=== PATIENT | male | born 1985 | race Caucasian/White ===

== ENCOUNTER 2021-12-22 12:19 | Outpatient (CLI) | payer BC, SELFPAY ==
[2021-12-22 13:44] LABS: Vitamin B12 607 pg/mL (211-911)
[2021-12-22 13:50] LABS: Hematocrit 44.6 % (40-54); Hemoglobin 14.5 g/dL (13.0-16.5); Mean Corp Hgb Conc 32.5 g/dL (32-36); Mean Corpuscular Hgb 28.5 pg (27.0-32.0); Mean Corpuscular Volume 87.6 fL (80-94); Mean Platelet Vol. 10.3 fl (6.2-12.0); Platelet Count 236 K/mm3 (150-450); RBC Distribution Width CV 13.3 % (11.6-14.6); RBC Distribution Width SD 42.7 fl (35.1-43.9); Red Blood Count 5.09 M/mm3 (4.6-6.2); White Blood Count 5.2 K/mm3 (4.4-11.0)
[2021-12-22 14:19] LABS: AST(SGOT) 28 U/L (15-37); Alanine Aminotransfer ALT/SGPT 83 U/L (16-61); Albumin, Serum 3.5 g/dL (3.2-5.0); Alkaline Phosphatase 85 U/L (45-117); Anion Gap 2 (5-15); BUN 7 mg/dL (7-18); BUN/Creat Ratio 7.6 RATIO (10-20); Calcium,Total 8.5 mg/dL (8.5-10.1); Chloride 109 mmol/L (98-107); Creatinine, Serum 0.92 mg/dL (0.70-1.30); EST Glomerular Filtration Rate 100 mL/min (>60); Est Glom Filt Rate - Afr Amer 120 mL/min (>60); Globulin 3.6 g/dL (2.2-4.2); Glucose 84 mg/dL (74-106); Potassium 4.4 mmol/L (3.5-5.1); Protein, Total 7.1 g/dL (6.4-8.2); Sodium Level 140 mmol/L (136-145); T4 Free Direct 0.97 ng/dL (0.76-1.46); T4 Total, Thyroxin 9.1 ug/dL (4.5-12.1); Thyroid Stim Hormone (TSH) 3.55 uIU/mL (0.358-3.74)
== END 2021-12-22 23:59 | disposition short-term general hospital (02) ==
LOC: LABSPEC 12:27
PROVIDERS: PCP Family Medicine; Visit Provider Nurse Practitioner Family
DX: E03.9 Hypothyroidism, unspecified (principal); F32.A Depression, unspecified; R53.83 Other fatigue
CPT/HCPCS: 80053; 82306; 82607; 82746; 84436; 84439; 84443; 85027

== ENCOUNTER → 2023-11-24 17:22 | Outpatient (REF) | payer BC, SELFPAY ==
[2023-11-24 17:24] LABS: Bacteria 0 SEEN /hpf (None Seen); Mucous, Urine 0 SEEN /hpf (<or=2+); Red Blood Cells-Urine 0 SEEN /hpf (0-5); Squamous Epithelial Cells - UA 0 SEEN /hpf (0-5); White Blood Cells 0 SEEN /hpf (0-5)
--- OUTSIDE RECORDS SUMMARY | 2023-11-24 17:25 | XMS RPT_ITS | CCD ---
Author Name Unknown Address [address] [place] [address] Organization [facility] Care Team Providers Care Communication Consultant Name Role Phone Unavailable Primary Care Provider Unavailabl e Pending Provider Unavailable Unavailable Unavailable Unavailable Columba Law MD Primary Care Provider COLUMBA LAW Primary Care Unavailable COLUMBA LAW Attending Unavailable COLUMBA LAW Primary Care Unavailable COLUMBA LAW Attending Unavailable COLUMBA LAW Primary Care Unavailable COLUMBA LAW Attending Unavailable COLUMBA LAW Primary Care Unavailable COLUMBA LAW Attending Unavailable Medications Current Medications Medication Drug Class(es) Dates Sig (Normalized) Sig (Original) cholecalciferol 0.025 mg oral tablet (4 sources) Vitamin D take 1 tablet by mouth once daily cholecalciferol (Vitamin D-3) 25 MCG (1000 UT) tablet Take 1,000 Units by mouth daily. 0 Active dexamethasone phosphate 1 mg/ml ophthalmic solution (4 sources) Corticosteroid Start: 2 dexAMETHasone (Decadron) 0.1 % ophthalmic solution PUT 3 DROPS IN R EAR TWICE DAILY FOR 5 DAYS 0 05/27/2022 Active escitalopram 20 mg oral tablet (4 sources) Serotonin Reuptake Inhibitor Start: 2 take 1 tablet by mouth once daily escitalopram (Lexapro) 20 MG tablet Take 20 mg by mouth daily. 0 11/16/2022 Active levothyroxine sodium 0.075 mg oral tablet (4 sources) l-Thyroxine Start: 3 levothyroxine (Synthroid, Levoxyl) 75 MCG tablet PLEASE SEE ATTACHED FOR DETAILED DIRECTIONS 0 01/20/2023 Active melatonin 3 mg oral tablet (4 sources) take 1 tablet by mouth once daily melatonin 3 MG tablet Take 3 mg by mouth daily. 0 Active Multiple Vitamin (MULTIVITAMIN ADULT PO) (4 sources) Multiple Vitamin (MULTIVITAMIN ADULT PO) Take by mouth. 0 Active sildenafil 50 mg oral tablet (5 sources) Phosphodiesterase 5 Inhibitor Start: 2 End: 3 take 1 tablet by mouth every twenty-four hours as needed sildenafil (Viagra) 50 MG tablet Take 1 tablet (50 mg) by mouth Daily as needed for erectile dysfunction. 10 tablet 1 08/12/2023 Active traZODone hydrochloride 100 mg oral tablet (5 sources) Serotonin Reuptake Inhibitor Start: 3 take 1 tablet by mouth once daily as needed traZODone (Desyrel) 100 MG tablet Take 100 mg by mouth Nightly as needed. 0 07/05/2023 Active Completed/Discontinued Medications Medication Drug Class(es) Dates Sig (Normalized) Sig (Original) phentermine hydrochloride 37.5 mg oral tablet (6 sources) Sympathomimetic Amine Anorectic Start: 08-12-2023 End: 11-06-2023 take 1 tablet by mouth once daily before breakfast phentermine (Adipex-P) 37.5 MG tablet Indications: Obesity, Class III, BMI 40-49.9 (morbid obesity) (HCC) Take 1 tablet (37.5 mg) by mouth every morning (before breakfast). 30 tablet 0 09/09/2023 10/07/2023 Discontinued (Reorder) Problems Active Problems Problem Classification Problem Date Documented Date Episodic/Chronic Immunizations and screening for infectious disease (3 sources) Patient encounter status; Translations: [Other specified vaccination] 08-12-2023 Episodic Miscellaneous mental health disorders (7 sources) Primary insomnia; Translations: [Primary insomnia] Onset: 07-21-2021 08-12-2023 Chronic Mood disorders (7 sources) Recurrent major depression in full remission; Translations: [Major depressive disorder, recurrent, in full remission] Onset: 07-21-2021 08-12-2023 Chronic Open wounds of extremities (1 source) Laceration of left ring finger; Translations: [Open wound of finger(s), without mention of complication] Episodic Other male genital disorders (5 sources) Vasculopathic erectile dysfunction; Translations: [Male erectile dysfunction, unspecified] Onset: 01-26-2022 08-12-2023 Chronic Other male genital disorders (2 sources) Male erectile dysfunction, unspecified; Translations: [Male erectile dysfunction, unspecified] Onset: 09-05-2022 Chronic Other non-traumatic joint disorders (1 source) Pain in wrist; Translations: [Pain in joint, forearm] Episodic Other nutritional; endocrine; and metabolic disorders (7 sources) Body mass index 40+ - severely obese; Translations: [Morbid (severe) obesity due to excess calories] Onset: 08-03-2022 08-12-2023 Chronic Other nutritional; endocrine; and metabolic disorders (2 sources) Morbid (severe) obesity due to excess calories; Translations: [Morbid (severe) obesity due to excess calories (HCC)] Onset: 09-05-2022 Chronic Other screening for suspected conditions (not mental disorders or infectious disease) (4 sources) Encounter for screening for diabetes mellitus; Translations: [Encounter for screening for lipoid disorders] Onset: 08-12-2023 Episodic Thyroid disorders (7 sources) Acquired hypothyroidism; Translations: [Hypothyroidism, unspecified] Onset: 07-21-2021 08-12-2023 Chronic Unclassified (2 sources) Weight Management; Translations: [Weight Management] Onset: 10-07-2023 Unclassified (2 sources) Other Onset: 10-07-2023 Past or Other Problems Problem Classification Problem Date Documented Da te Episodic/Chronic Allergic reactions (4 sources) Irritant contact dermatitis; Translations: [Irritant contact dermatitis due to other agents] Onset: 08-03-2022 09-04-2022 Episodic Mood disorders (4 sources) Mood disorders Onset: 08-12-2023 08-12-2023 Residual codes; unclassified (4 sources) Dependent edema; Translations: [Edema, unspecified] Onset: 02-10-2023 02-10-2023 Episodic Residual codes; unclassified (2 sources) Edema, unspecified; Translations: [Edema, unspecified] Onset: 02-10-2023 Episodic Results Test Name Value Interpretation Reference Range Facil ity Vital Signs Date Time Vital Sign Value Performing Clinician Faci lity 10-07-2023 11:40-0500 Body height 182.9 cm Columba Law MD Work Phone: [facility] 10-07-2023 11:40-0500 Body mass index (BMI) [Ratio] 41.77 kg/m2 Columba Law MD Work Phone: [facility] 10-07-2023 11:40-0500 Body weight 139.71 kg Columba Law MD Work Phone: [facility] 09-09-2023 10:50-0400 Body height 182.9 cm Columba Law MD Work Phone: [facility] 09-09-2023 10:50-0400 Body mass index (BMI) [Ratio] 43.78 kg/m2 Columba Law MD Work Phone: [facility] 09-09-2023 10:50-0400 Body weight 146.42 kg Columba Law MD Work Phone: [facility] 09-09-2023 10:50-0400 Diastolic blood pressure 85 mm[Hg] Columba Law MD Work Phone: [facility] [employer] 09-09-2023 10:50-0400 Heart rate 91 /min Columba Law MD Work Phone: [facility] 09-09-2023 10:50-0400 SaO2% (BldA) [Mass fraction] 94 % Columba Law MD Work Phone: [facility] [facility] 09-09-2023 10:50-0400 Systolic blood pressure 129 mm[Hg] Columba Law MD Work Phone: [facility] [facility] 08-12-2023 09:04-0400 Body height 182.9 cm Columba Law MD Work Phone: [facility] 08-12-2023 09:04-0400 Body mass index (BMI) [Ratio] 46.38 kg/m2 Columba Law MD Work Phone: [facility] [facility] 08-12-2023 09:04-0400 Body weight 155.13 kg Columba Law MD Work Phone: [facility] [facility] 08-12-2023 09:04-0400 Diastolic blood pressure 82 mm[Hg] Columba Law MD Work Phone: [facility] [employer] 08-12-2023 09:04-0400 Heart rate 87 /min Columba Law MD Work Phone: [facility] [employer] 08-12-2023 09:04-0400 SaO2% (BldA) [Mass fraction] 92 % Columba Law MD Work Phone: [facility] [employer] 08-12-2023 09:04-0400 Systolic blood pressure 116 mm[Hg] Columba Law MD Work Phone: [facility] [employer] 01-18-2022 13:54-0500 Body height 182.88 cm Dustin Fernandez Isaiah DO Work Phone: [facility] Work Phone: 01-18-2022 13:54-0500 Body mass index (BMI) [Ratio] 40.51 kg/m2 Dustin Fernandez Isaiah DO Work Phone: [facility] Work Phone: 01-18-2022 13:54-0500 Body surface area Derived from formula 2.53 m2 Dustin Fernandez Isaiah DO Work Phone: [facility] Work Phone: 01-18-2022 13:54-0500 Body temperature 98 [degF] Dustin Rebecca Isaiah DO Work Phone: [facility] Work Phone: 01-18-2022 13:54-0500 Body weight 135.5 kg Dustin Rebecca Colon DO Work Phone: [facility] Work Phone: 01-18-2022 13:54-0500 Diastolic blood pressure 80 mm[Hg] Dustin Fernandez Colon DO Work Phone: [facility] Work Phone: 01-18-2022 13:54-0500 Heart rate 64 /min Dustin Colon DO Work Phone: [facility] Work Phone: 01-18-2022 13:54-0500 Respiratory rate 18 /min Dustin Colon DO Work Phone: [facility] Work Phone: 01-18-2022 13:54-0500 SaO2% (BldA) [Mass fraction] 98 % Dustin Colon DO Work Phone: [facility] Work Phone: 01-18-2022 13:54-0500 Systolic blood pressure 124 mm[Hg] Dustin Colon DO Work Phone: [facility] Work Phone: 01-18-2022 13:54-0500 0 1 Dustin Colon DO Work Phone: [facility] Work Phone: Encounters Encounter Date Encounter Type Care Provider Facility Start: 10-07-2023 End: 10-07-2023 ambulatory COLUMBA LAW [facility] Start: 10-07-2023 End: 10-07-2023 Office outpatient visit 15 minutes Columba Law MD Work Phone: [facility] Procedures Date Procedure Procedure Detail Performing Clinician Start: 08-12-2023 Lipid 1996 panel - S yessi or Plasma Columba Law MD Work Phone: Start: 08-12-2023 Thyrotropin [Units/v olume] in Serum or Plasma Columba Law MD Work Phone: Start: 08-03-2022 Lipid 1995 panel - S yessi or Plasma Columba Law MD Work Phone: Start: 08-03-2022 Thyrotropin [Units/v olume] in Serum or Plasma Columba Law MD Work Phone: Start: 06-26-2021 soft tissue head & neck real time imge docthanh Ruano DO Work Phone: Plan of Treatment Date Care Activity Detail Author Start: 2047 RSV Immunization age d 60 or older (1 - 1-dose 60+ series) RSV Immunization aged 60 or older (1 - 1-dose 60+ series) [facility] Start: 2037 Zoster Vaccines (1 of 2) Zoster Vacc lucía (1 of 2) [facility] Start: 10-05-2030 DTaP/Tdap/Td vaccine (2 - Td or Tdap) DTaP/Tdap/Td vaccine (2 - Td or Tdap) [facility] Work Phone: Start: 10-05-2030 DTaP/Tdap/Td Vaccine s (2 - Td or Tdap) DTaP/Tdap/Td Vaccines (2 - Td or Tdap) [facility] Start: 08-12-2028 Lipid panel Lipid Panel [facility] Start: 08-03-2027 Lipid panel Lipid Panel [facility] Start: 08-12-2024 COVID-19 Vaccine ( season) COVID-19 Vaccine ( season) [facility] Immunizations Immunization Date Immunization Notes Care Provider Fa cili 10-05-2020 tetanus toxoid, redu micheal diphtheria toxoid, and acellular pertussis vaccine, adsorbed; Translations: [Tdap] Dustin Colon DO Work Phone: [facility] Payers Date Payer Category Payer Unknown 2022 Unknown [id number] Social History Date Type Detail Facility Tobacco smoking status HIIS Unkn own if ever smoked [facility] Work Phone: Start: 1985 Sex Assigned At Not on file [facility] Work Phone: Start: 08-12-2023 End: 10-06-2023 Non-smoker Non-smoker [facility] Work Phone: Tobacco smoking status HIIS Never smoked tobacco [facility] Start: 08-12-2023 End: 10-07-2023 Alcohol intake Ex-drinker (finding) [facility] Start: 08-12-2023 End: 10-06-2023 Alcohol Use Disorder Identification Test - Consumption [AUDIT-C] [facility] Frequency of Alcohol Consumption Not on file [facility] [employer] (I/We) worried wheth er (my/our) food would run out before (I/we) got money to buy more. Never true [facility] [facility] In the past 12 month s, was there a time when you were not able to pay the mortgage or rent on time? No [facility] Start: 08-02-2023 End: 08-12-2023 Exposure to SARS-CoV-2 (event) Not sure [facility] Clinical Notes 08-12-2023 to 10-07-2023 Assessment & Plan Note - Columba Law MD - 10/07/2023 11:47 AM ESTAssessment & Plan Note - Columba Law MD - 10/07/2023 11:47 AM Cindi Kingsley MA - 09/09/2023 10:45 AM EDT Note Date & Type Note Facility 10-07-2023 Evaluation + Plan note Associ ated Problem(s): Obesity, Class III, BMI 40-49.9 (morbid obesity) (HCC) Refill Adipex, OARRS report done, no inconsistencies, recommended that he come in when he finishes this month of medication and get a final weight when he finishes the medication. [facility] 10-07-2023 Miscellaneous Notes Associate d Problem(s): Obesity, Class III, BMI 40-49.9 (morbid obesity) (HCC) Refill Adipex, OARRS report done, no inconsistencies, recommended that he come in when he finishes this month of medication and get a final weight when he finishes the medication. documented in this encounter [facility] 10-07-2023 History of Presen t illness Narrative Images from the original note were not included. 10/07/2023 Too Sosa (: 1985) is a 38 y.o. male , Established patient, here for evaluation of the following chief complaint(s): Weight Management (Adipex //Visit virtual due to being positive for Covid ) and Other (Pt understands that this visit is virtual and will be billed to his insurance ) ASSESSMENT/PLAN: 1. Obesity, Class III, BMI 40-49.9 (morbid obesity) ([facility]) Assessment & Plan: Refill Adipex, OARRS report done, no inconsistencies, recommended that he come in when he finishes this month of medication and get a final weight when he finishes the medication. Orders: - phentermine (Adipex-P) 37.5 MG tablet; Take 1 tablet (37.5 mg) by mouth every morning (before breakfast)., Starting Sharona 10/07/2023, Until 11/06/2023, Normal Follow up in about 4 weeks (around 11/04/2023) for Weight check. SUBJECTIVE/OBJECTIVE: Patient was identified and seen today via Telehealth by agreement and consent. I used the following Telehealth technology: Audio and video capabilities. Patient location: Patient Location: Home. This patient encounter is appropriate and reasonable under the circumstances: too sick to leave home . The patient has been advised of the potential risks and limitations of this mode of treatment (including but not limited to the absence of in-person examination) and has agreed to be treated in a remote fashion in spite of them. Any and all of the patient's/patient's family's questions on this issue have been answered and I have made no promises or guarantees to the patient. The patient has also been advised to contact this office for worsening conditions or problems, and seek emergency medical treatment and/or call 911 if the patient deems either necessary. The patient stated that they are currently in the [facility]. If the patient is a minor, permission has been obtained by the parent or guardian for the patient to receive medical care at this visit. ADAN Rowell calls in today for a telehealth video virtual visit for follow-up on his Adipex. He said he tested positive for COVID a couple days ago and he thinks she is on the upswing but he did not think he should come into the office being COVID-positive. His weight is down another 14 pounds and he feels like he is starting to feel better, we discussed his need to be very vigilant to make sure that he is learning how to eat better and that he gets on an exercise regimen. Review of Systems Constitutional: Negative for activity change, appetite change, chills, fever and unexpected weight change. HENT: Negative for ear pain and sore throat. Respiratory: Negative for shortness of breath. Cardiovascular: Negative for chest pain and palpitations. Gastrointestinal: Negative for abdominal pain, blood in stool, constipation and diarrhea. Genitourinary: Negative for dysuria, frequency, hematuria and urgency. Musculoskeletal: Negative for arthralgias and back pain. Skin: Negative. Neurological: Negative for weakness and numbness. Psychiatric/Behavioral: Negative for dysphoric mood. The patient is not nervous/anxious. Vitals: 10/07/23 1140 Weight: (!) 308 lb (140 kg) Height: 6' (1.829 m) Physical Exam Constitutional: General: He is not in acute distress. Appearance: Normal appearance. He is obese. Eyes: Extraocular Movements: Extraocular movements intact. Pupils: Pupils are equal, round, and reactive to light. Musculoskeletal: Cervical back: Neck supple. Neurological: Mental Status: He is alert. Psychiatric: Mood and Affect: Mood normal. An electronic signature was used to authenticate this note. Columba Law MD 10/07/2023 11:48 AM documented in this encounter [facility] 09-09-2023 Evaluation + Plan note Associ ated Problem(s): Obesity, Class III, BMI 40-49.9 (morbid obesity) ([facility]) 20 pound weight loss, we will refill phentermine 37.5 Rx sent, OARRS report done, no inconsistencies, [facility] 09-09-2023 Miscellaneous Notes Associate d Problem(s): Obesity, Class III, BMI 40-49.9 (morbid obesity) (HCC) 20 pound weight loss, we will refill phentermine 37.5 Rx sent, OARRS report done, no inconsistencies, documented in this encounter [facility] 09-09-2023 History of Presen t illness Narrative Patient verified by last name and date of . Waist 56 Images from the original note were not included. 09/09/2023 Too Sosa (: 1985) is a 38 y.o. male , Established patient, here for evaluation of the following chief complaint(s): Weight Management (1 month Adipex ) ASSESSMENT/PLAN: 1. Obesity, Class III, BMI 40-49.9 (morbid obesity) ([facility]) Assessment & Plan: 20 pound weight loss, we will refill phentermine 37.5 Rx sent, OARRS report done, no inconsistencies, Orders: - phentermine (Adipex-P) 37.5 MG tablet; Take 1 tablet (37.5 mg) by mouth every morning (before breakfast)., Starting Sharona 09/09/2023, Until 10/09/2023, Normal Follow up in about 4 weeks (around 10/07/2023). SUBJECTIVE/OBJECTIVE: ADAN Rowell comes in today for 4-week follow-up on his weight, he is actually lost 20 pounds on his first month of Adipex. Says he is learning how to eat differently portion control is important he is finding out that he would like to start getting in the some more exercise. Review of Systems Constitutional: Negative for chills and fever. Respiratory: Negative for shortness of breath. Cardiovascular: Negative for chest pain and palpitations. Gastrointestinal: Negative for abdominal pain, blood in stool, constipation and diarrhea. Genitourinary: Negative for dysuria, frequency, hematuria and urgency. Vitals: 09/09/23 1050 BP: 129/85 Pulse: 91 SpO2: 94% Weight: (!) 322 lb 12.8 oz (146 kg) Height: 6' (1.829 m) Physical Exam Vitals and nursing note reviewed. Constitutional: General: He is not in acute distress. Appearance: Normal appearance. HENT: Head: Normocephalic. Mouth/Throat: Mouth: Mucous membranes are moist. Pharynx: Oropharynx is clear. Eyes: Extraocular Movements: Extraocular movements intact. Pupils: Pupils are equal, round, and reactive to light. Cardiovascular: Rate and Rhythm: Normal rate and regular rhythm. Heart sounds: Normal heart sounds. Pulmonary: Effort: Pulmonary effort is normal. Breath sounds: Normal breath sounds. Abdominal: General: Bowel sounds are normal. Palpations: Abdomen is soft. Musculoskeletal: Cervical back: Neck supple. Neurological: Mental Status: He is alert. An electronic signature was used to authenticate this note. Columba Law MD 09/09/2023 11:51 AM documented in this encounter [facility] 08-13-2023 Telephone encounter Note Form atting of this note might be different from the original. Okay, thank you [facility] 08-13-2023 Miscellaneous Notes Formattin g of this note might be different from the original. Okay, thank you Message released to patient as written. Blood sugar and chemistry are normal except 1 liver test that is minimally elevated and that has improved from 6 months ago. Cholesterol is excellent, Continue low-fat low-cholesterol low-carb diet. Thyroid level is normal continue current dose of levothyroxine Insurance denied the phentermine, Dr. Law said we can refer him to the bariatric group or he can pay for the medicine out of pocket, which would he prefer? Patient's further questions if applicable: Pt verbalized understanding of lab results, no further questions. In regards to the phentermine, pt states he is going to pay out of pocket. Please advise. Were all questions from office addressed or relayed to the patient from encounter: Yes Images from the original note were not included. Insurance denied the phentermine, Dr. Law said we can refer him to the bariatric group or he can pay for the medicine out of pocket, which would he prefer? Please also relay lab results: MD Shane Dodson [facility] e[facility]nja Quintanilla [employer] Blood sugar and chemistry are normal except 1 liver test that is minimally elevated and that has improved from 6 months ago. Cholesterol is excellent, Continue low-fat low-cholesterol low-carb diet. Thyroid level is normal continue current dose of levothyroxine Left a message to return call. documented in this encounter [facility] 08-13-2023 Telephone encounter Note Form atting of this note might be different from the original. Message released to patient as written. Blood sugar and chemistry are normal except 1 liver test that is minimally elevated and that has improved from 6 months ago. Cholesterol is excellent, Continue low-fat low-cholesterol low-carb diet. Thyroid level is normal continue current dose of levothyroxine Insurance denied the phentermine, Dr. Law said we can refer him to the bariatric group or he can pay for the medicine out of pocket, which would he prefer? Patient's further questions if applicable: Pt verbalized understanding of lab results, no further questions. In regards to the phentermine, pt states he is going to pay out of pocket. Please advise. Were all questions from office addressed or relayed to the patient from encounter: Yes [facility] 08-13-2023 Telephone encounter Note Form atting of this note might be different from the original. Images from the original note were not included. Insurance denied the phentermine, Dr. Law said we can refer him to the bariatric group or he can pay for the medicine out of pocket, which would he prefer? Please also relay lab results: MD Shane Dodson [employer] [employer] Blood sugar and chemistry are normal except 1 liver test that is minimally elevated and that has improved from 6 months ago. Cholesterol is excellent, Continue low-fat low-cholesterol low-carb diet. Thyroid level is normal continue current dose of levothyroxine Left a message to return call. [facility] 08-12-2023 Evaluation + Plan note Associ ated Problem(s): Recurrent major depressive disorder, in full remission (HCC) Remission, continue Lexapro 20 mg daily [facility] 08-12-2023 Miscellaneous Notes Associate d Problem(s): Recurrent major depressive disorder, in full remission (HCC) Remission, continue Lexapro 20 mg daily Associated Problem(s): Obesity, Class III, BMI 40-49.9 (morbid obesity) (HCC) We had a long discussion on weight loss, weight loss medications, diet and exercise and metabolism. He brings up Wegovy and we discussed the difficulty in getting that we also discussed Adipex as another option and he is willing to try that and he will check with his insurance on the Wegovy. Adipex 37.5 daily OARRS report done, no inconsistencies Follow-up in 4 weeks. Associated Problem(s): Acquired hypothyroidism Stable, continue levothyroxine 75 mcg Associated Problem(s): Vasculogenic erectile dysfunction Responds to Viagra we will refill medications Associated Problem(s): Primary insomnia Stable on melatonin and trazodone documented in this encounter [facility] 08-12-2023 Evaluation + Plan note Associ ated Problem(s): Obesity, Class III, BMI 40-49.9 (morbid obesity) (HCC) We had a long discussion on weight loss, weight loss medications, diet and exercise and metabolism. He brings up Wegovy and we discussed the difficulty in getting that we also discussed Adipex as another option and he is willing to try that and he will check with his insurance on the Wegovy. Adipex 37.5 daily OARRS report done, no inconsistencies Follow-up in 4 weeks. [facility] [employer] 08-12-2023 Evaluation + Plan note Associ ated Problem(s): Acquired hypothyroidism Stable, continue levothyroxine 75 mcg [facility] [employer] 08-12-2023 Evaluation + Plan note Associ ated Problem(s): Vasculogenic erectile dysfunction Responds to Viagra we will refill medications T [facility] 08-12-2023 Evaluation + Plan note Associ ated Problem(s): Primary insomnia Stable on melatonin and trazodone T [facility] 08-12-2023 History of Presen t illness Narrative Patient verified by last name and date of . Images from the original note were not included. 08/12/2023 Too Sosa (: 1985) is a 38 y.o. male , Established patient, here for evaluation of the following chief complaint(s): Annual Exam, Blood Work, and Health Maintenance (Hep b vaccine- refuse/Covid 3 vaccine- not done/Flu vaccine- refuse) ASSESSMENT/PLAN: 1. Annual physical exam 2. Primary insomnia Assessment & Plan: Stable on melatonin and trazodone 3. Vasculogenic erectile dysfunction, unspecified vasculogenic erectile dysfunction type Assessment & Plan: Responds to Viagra we will refill medications 4. Acquired hypothyroidism Assessment & Plan: Stable, continue levothyroxine 75 mcg Orders: - TSH 5. Obesity, Class III, BMI 40-49.9 (morbid obesity) ([facility]) Assessment & Plan: We had a long discussion on weight loss, weight loss medications, diet and exercise and metabolism. He brings up Wegovy and we discussed the difficulty in getting that we also discussed Adipex as another option and he is willing to try that and he will check with his insurance on the Wegovy. Adipex 37.5 daily OARRS report done, no inconsistencies Follow-up in 4 weeks. Orders: - phentermine (Adipex-P) 37.5 MG tablet; Take 1 tablet (37.5 mg) by mouth every morning (before breakfast)., Starting [place] 08/12/2023, Until 09/11/2023, Normal 6. Recurrent major depressive disorder, in full remission ([facility]) Assessment & Plan: Remission, continue Lexapro 20 mg daily 7. Screening for diabetes mellitus - Comprehensive metabolic panel 8. Screening for lipid disorders - Lipid panel Follow up in about 4 weeks (around 09/09/2023). SUBJECTIVE/OBJECTIVE: ADAN Rowell comes in today for an annual exam and for follow-up on his multiple health issues which include insomnia, hypothyroidism, depression, obesity and he has been gaining weight and he is wondering about going on something to help him lose weight. And his erectile dysfunction. He currently has no complaints other than his weight, see ROS. Review of Systems Constitutional: Negative for activity change, appetite change, chills, fever and unexpected weight change. HENT: Negative for ear pain and sore throat. Respiratory: Negative for shortness of breath. Cardiovascular: Negative for chest pain and palpitations. Gastrointestinal: Negative for abdominal pain, blood in stool, constipation and diarrhea. Genitourinary: Negative for dysuria, frequency, hematuria and urgency. Musculoskeletal: Negative for arthralgias and back pain. Skin: Negative. Neurological: Negative for weakness and numbness. Psychiatric/Behavioral: Negative for dysphoric mood. The patient is not nervous/anxious. Vitals: 08/12/23 0904 BP: 116/82 Pulse: 87 SpO2: 92% Weight: (!) 342 lb (155 kg) Height: 6' (1.829 m) Physical Exam Vitals and nursing note reviewed. Constitutional: General: He is not in acute distress. Appearance: Normal appearance. He is obese. HENT: Right Ear: Tympanic membrane, ear canal and external ear normal. Left Ear: Tympanic membrane, ear canal and external ear normal. Mouth/Throat: Mouth: Mucous membranes are moist. Pharynx: Oropharynx is clear. Eyes: Extraocular Movements: Extraocular movements intact. Conjunctiva/sclera: Conjunctivae normal. Pupils: Pupils are equal, round, and reactive to light. Neck: Thyroid: No thyromegaly. Cardiovascular: Rate and Rhythm: Normal rate and regular rhythm. Heart sounds: Normal heart sounds. No murmur heard. Pulmonary: Effort: Pulmonary effort is normal. Breath sounds: Normal breath sounds. Abdominal: General: Bowel sounds are normal. Palpations: Abdomen is soft. Tenderness: There is no abdominal tenderness. Musculoskeletal: General: Normal range of motion. Cervical back: Neck supple. Lymphadenopathy: Cervical: No cervical adenopathy. Skin: General: Skin is warm and dry. Neurological: General: No focal deficit present. Mental Status: He is alert and oriented to person, place, and time. Psychiatric: Mood and Affect: Mood normal. An electronic signature was used to authenticate this note. Columba Law MD 08/12/2023 10:08 AM documented in this encounter [facility] Diagnosis Obesity, Class III, BMI 40-49.9 (morbid obesity) ([facility]) [facility] Diagnosis Obesity, Class III, BMI 40-49.9 (morbid obesity) (HCC) documented in this encounter [facility] Summary Purpose Family History No Family History Records FoundNo Family History Records FoundNo Family History Records FoundNo Family History Records FoundNo Family History Records Found Advance Directives No Advanced Directives Records FoundNo Advanced Directives Records FoundNo Advanced Directives Records FoundNo Advanced Directives Records FoundNo Advanced Directives Records Found Reason for Referral Specialty Diagnoses / Procedures Referred By Jack t Referred To Contact Diagnoses Obesity, Class III, BMI 40-49.9 (morbid obesity) ([facility]) Columba Law MD [address] [place] [id number] Referral ID Status Reason Start Date Expiration Date Visits Re quested Visits Authorized [id number] Denied 1 1 Referral ID Status Reason Start Date Expiration Date Visits Re quested Visits Authorized [id number] Denied 1 1 Referral ID Status Reason Start Date Expiration Date Visits Re quested Visits Authorized [id number] Closed 1 1 Additional Source Comments (unrecognized sect ion and content) No Status Records FoundNo Status Records FoundNo Status Records FoundNo Status Records FoundNo Status Records Found INFORMATION SOURCE (unrecogn ized section and content) DATE CREATED AUTHOR AUTHOR'S ORGANIZ ATION 12/08/2021 [facility] DATE CREATED AUTHOR AUTHOR'S ORGANIZ ATION 01/18/2022 [employer] DATE CREATED AUTHOR AUTHOR'S ORGANIZ ATION 01/21/2022 [facility] DATE CREATED AUTHOR AUTHOR'S ORGANIZ ATION 10/08/2023 [facility] [employer] [facility] Reason for Visit (unrecogniz ed section and content) Reason Onset Date Comments Advice Only 08/13/2023 Release of Information 08/13/2023 Reason Comments Weight Management 1 month Adipex Reason Comments Weight Management Adipex Visit virtual due to being positive for Covid Other Pt understands that this visit is virtual and will be billed to his insurance Care Teams (unrecognized sec tion and content) Communication Consultant Relationship Specialty Start Date End Date Columba Law MD [address] [place] [phone] PCP - General 07/21/21 Communication Consultant Relationship Specialty Start Date End Date Columba Law MD [address] [place] [id number] PCP - General 07/21/21 Communication Consultant Relationship Specialty Start Date End Date Columba Law MD [address] [place] [address], [facility] [place], [place] [phone] PCP - General 07/21/21 FOR RECORDS PERTAINING TO PATIENTS WHO ARE OR HAVE BEEN ENROLLED IN A CHEMICAL DEPENDENCY/SUBSTANCEABUSE PROGRAM, SOME INFORMATION MAY BE OMITTED. This clinical summary was aggregated from multiple sources. Caution should be exercised in using it in the provision of clinical care. This summary normalizes information from multiple sources, and as a consequence, information in this document may materially change the coding, format and clinical context of patient data. In addition, data may be omitted in some cases. CLINICAL DECISIONS SHOULD BE BASED ON THE PRIMARY CLINICAL RECORDS. [employer] [facility]. provides no warranty or guarantee of the accuracy or completeness of information in this document.
[2023-11-24 17:52] LABS: Color, Urine Yellow (Yellow); Glucose, Dipstick Normal (Normal); Ketone-Dipstick Negative (Negative); Leukocyte Esterase-Dipstick Negative /ul (Negative); Nitrite-Dipstick Negative (Negative); Occult Blood-Urine Negative /ul (Negative); Protein-Dipstick Negative (Negative); Urine Bilirubin Dipstick Negative (Negative); Urine Clarity Clear (Clear); Urine Urobilinogen Normal (Normal)
== END ==
LOC: LABSPEC 17:22
PROVIDERS: PCP Family Medicine; Visit Provider Nurse Practitioner Family
DX: R30.0 Dysuria (principal)
CPT/HCPCS: 81001; 87086